=== PATIENT | female | born 1955 | race Two or more races ===

== ENCOUNTER 2019-08-04 06:53 | Inpatient (IN) | payer BC, OTHER ==
[~2019-08-04] VITALS: Ht 167.6 cm; Wt 98.9 kg
[2019-08-04] MEDS ORDERED: SODIUM CHLORIDE 0.9% 1,000 ML IV ONE ×2 (06:57)
[2019-08-04] MEDS ORDERED: LABETALOL HCL 5 MG/ML 4ML SYRINGE IV ONE (07:00)
[2019-08-04] MEDS ORDERED: InsuLIN REG 1unit/0.01ml Soln (100units/ml) IV ONE (07:15)
[2019-08-04 08:46] LABS: Eosinophils # (auto) 0 10 ^3/uL (0-0.8); Hemoglobin 16.5 g/dL (12.2-16.2); Nucleated Red Blood Cells % 0.1 %
[2019-08-04 08:48] LABS: Basophils # (auto) 0.2 10 ^3/uL (0-0.2); Basophils % (auto) 0.8 % (0.0-2.0); Eosinophils % (auto) 0.1 % (0.0-7.0); Hematocrit 49.9 % (36.0-46.0); Lymphocytes % (auto) 9.7 % (10.0-50.0); Mean Corpuscular Hemoglobin 26.2 pg (28.0-32.0); Mean Corpuscular Hgb Conc. 33.1 g/dL (32.0-36.0); Mean Corpuscular Volume 79.4 fL (80.0-100.0); Monocytes # (auto) 1.1 10 ^3/uL (0-1.3); Monocytes % (auto) 5.2 % (0.0-12.0); Neutrophils % (auto) 84.2 % (37.0-80.0); Platelet Count (auto) 428 10^3/uL (140-450); Red Blood Cells 6.29 10^6/uL (4.0-5.20); White Blood Cell 20.2 10^3/uL (4.4-10.8)
[2019-08-04 09:01] LABS: Albumin 3.4 g/dL (3.4-5.0); Anion Gap 12 (5-15); Blood Urea Nitrogen 13 mg/dL (7-18); Calcium 9.1 mg/dL (8.5-10.1); Carbon Dioxide 25 mmol/L (21-32); Chloride 93 mmol/L (98-107); Glucose 283 mg/dL (74-106); Potassium 3.2 mmol/L (3.5-5.1); Sodium 130 mmol/L (136-145)
[2019-08-04 09:04] LABS: BUN/Creatinine Ratio 14.4; GFR African American 81 mL/min; GFR Non-African American 67 mL/min
[2019-08-04 09:08] LABS: Alanine Aminotransferase 34 U/L (13-56); Alkaline Phosphatase 88 U/L (45-117); Aspartate Aminotransferase 36 U/L (15-37); Bilirubin, Total 1.1 mg/dL (0.2-1.0); Total Protein 7.9 g/dL (6.4-8.2)
[2019-08-04] MEDS ORDERED: cefTRIAXone 1GM/50ML D5W 50 ML IV ONE (09:30)
[2019-08-04 09:52] LABS: Urine Bacteria NONE SEEN /hpf (None Seen); Urine Blood Negative /uL (Negative); Urine Hyaline Cast FEW /lpf (0 - 2); Urine Specific Gravity 1.017 (1.001-1.035); Urine WBC 1 /hpf (0 - 5)
[2019-08-04] MEDS ORDERED: MORPHINE SULF INJ 2 MG/ML SYRINGE 1ML IV PRN ×3 (10:15→13:30)
[2019-08-04] MEDS ORDERED: NITROGLYCERIN 0.4 MG SL TAB SL PRN (10:15)
[2019-08-04] MEDS ORDERED: SODIUM CHLORIDE 0.9% 2,300 ML IV ONE (10:15)
[2019-08-04] MEDS ORDERED: DEXTROSE (50%) 50ML SYRG IV PRN (10:15)
[2019-08-04] MEDS ORDERED: levoFLOXacin 500MG 100 ML IV ONE (10:15)
[2019-08-04] MEDS ORDERED: ENOXAPARIN SOD 40 MG/0.4 ML SYRINGE SC ONE (10:15)
[2019-08-04] MEDS ORDERED: ACETAMINOPHEN 500 MG TAB PO PRN (10:15)
[2019-08-04] MEDS: FAMOTIDINE (10MG/ML) 2ML VL IV SCH ×2 (10:33→22:34)
[2019-08-04] MEDS ORDERED: IOHEXOL 300 MG/ML 100ML BOTTLE IJ ONE (10:57)
[2019-08-04] MEDS ORDERED: LORazepam 2MG/ML-1ML VIAL IV ONE (11:15)
[2019-08-04] MEDS: MORPHINE SULF INJ 2 MG/ML SYRINGE 1ML IV PRN (12:05)
[2019-08-04] MEDS: PROMETHAZINE HCL 25 MG/ML 1ML IV PRN (12:05)
[2019-08-04 12:12] VITALS: BP 184/104
[2019-08-04 12:34] LABS: CRP High Sensitivity 1.65 mg/dL (< 0.3)
[2019-08-04] MEDS ORDERED: ASPirin 81 mg TAB PO ONE (13:00)
[2019-08-04] MEDS: ACCU-CHEK COMFORT CURVE STRIP VI SCH ×3 (13:01→23:25)
[2019-08-04] MEDS: InsuLIN REG 1unit/0.01ml Soln (100units/ml) SC SCH ×3 (13:12→23:25)
--- NOTE | 2019-08-04 15:30 | NUR ---
Spoke with Spoke with on the phone regarding update on patient. She is currently drowsy, sleeping, easily aroused but doesn't open her eyes for long or say much. Explained to the that she was restless and in pain so she was given pain medication prior to arrival on central unit and she was sleepy. He said he hadn't talked to anyone all morning and patient wasn't answering the phone. Updated as much as possible at this time. He said he would call back later today for an update.
[2019-08-04] MEDS: SOD CHL 0.9%/ KCL 40MEQ 1,000 ML IV SCH ×2 (15:46→17:42)
[2019-08-04] MEDS: metroNIDAZOLE 500MG/100ML 100 ML IV SCH ×2 (15:46→22:34)
--- NOTE | 2019-08-04 17:00 | NUR ---
Patient transfer from COVID unit Patient came to the room from the [facility] in hospital bed. COVID negative. Patient is sleeping soundly but wakes easily to sound/touch. Bed alarm is on. Bed is in lowest position with brakes locked.
[2019-08-04 17:22] VITALS: BP 158/99
--- NOTE | 2019-08-04 19:15 | NUR ---
opening note pt is sleeping. respirations even on 2Lnc. no s/s of pain or discomfort at this time. winslow catheter in place, below bladder without kinks and draining. bed in low locked position, call light within reach.
[2019-08-04 21:45] VITALS: BP 153/94
[2019-08-04 22:00] VITALS: BP 173/99
[2019-08-04] MEDS: ATORVASTATIN 20 MG TAB PO SCH (22:34)
[2019-08-05] MEDS: SOD CHL 0.9%/ KCL 40MEQ 1,000 ML IV SCH ×3 (02:48→19:35)
[2019-08-05 05:00] VITALS: BP 161/93
[2019-08-05] MEDS: metroNIDAZOLE 500MG/100ML 100 ML IV SCH ×3 (05:22→22:02)
[2019-08-05] MEDS: ACCU-CHEK COMFORT CURVE STRIP VI SCH ×3 (05:22→18:04)
[2019-08-05] MEDS: InsuLIN REG 1unit/0.01ml Soln (100units/ml) SC SCH ×3 (05:25→18:05)
[2019-08-05 06:04] LABS: Basophils # (auto) 0.1 10 ^3/uL (0-0.2); Basophils % (auto) 0.8 % (0.0-2.0); Eosinophils # (auto) 0 10 ^3/uL (0-0.8); Eosinophils % (auto) 0.2 % (0.0-7.0); Hematocrit 44.8 % (36.0-46.0); Hemoglobin 15.1 g/dL (12.2-16.2); Lymphocytes # (auto) 2.5 10 ^3/uL (0.4-5.4); Lymphocytes % (auto) 15.9 % (10.0-50.0); Mean Corpuscular Hemoglobin 26.7 pg (28.0-32.0); Mean Corpuscular Hgb Conc. 33.7 g/dL (32.0-36.0); Mean Corpuscular Volume 79.2 fL (80.0-100.0); Monocytes # (auto) 1.2 10 ^3/uL (0-1.3); Monocytes % (auto) 7.7 % (0.0-12.0); Neutrophils # (auto) 11.9 10 ^3/uL (1.6-8.6); Neutrophils % (auto) 75.4 % (37.0-80.0); Nucleated Red Blood Cells % 0.2 %; Platelet Count (auto) 368 10^3/uL (140-450); Red Blood Cells 5.66 10^6/uL (4.0-5.20); Red Cell Distribution Width 14.5 % (11.8-14.3); White Blood Cell 15.8 10^3/uL (4.4-10.8)
[2019-08-05 06:12] LABS: Albumin 2.9 g/dL (3.4-5.0); Calcium 8.3 mg/dL (8.5-10.1); Potassium 3.5 mmol/L (3.5-5.1)
[2019-08-05 06:25] VITALS: BP 153/85
[2019-08-05 06:25] LABS: Bilirubin, Total 1.2 mg/dL (0.2-1.0)
--- NOTE | 2019-08-05 07:27 | NUR ---
closing note pt is resting in semi fowlers position with HOB at 30 degrees. respirations even nonlabored on 2Lnc. no s/s of pain or discomfort at this time. bed in low locked position, call light within reach.
--- NOTE | 2019-08-05 07:35 | NUR ---
Opening shift note assumed care of patient form NOR MELISSA Gibson. Patient is Aox4 and drowsy patient is able to verbalize personal information, month, year, location and situation. Bed is in lowest locked position, side rails up x2, and call light with in reach. Updated patient on plan of care and patient verbalized understanding. I will continue to monitor Q1hr and PRN.
[2019-08-05 09:00] VITALS: BP 159/93
--- NOTE | 2019-08-05 09:00 | NUR ---
Physician rounding Dr. Cardona at bedside. Updated MD on patient status. No new orders received.
[2019-08-05] MEDS: ENOXAPARIN SOD 40 MG/0.4 ML SYRINGE SC SCH (12:22)
[2019-08-05] MEDS: FAMOTIDINE (10MG/ML) 2ML VL IV SCH ×2 (12:22→22:02)
[2019-08-05] MEDS: levoFLOXacin 500MG 100 ML IV SCH (12:22)
[2019-08-05] MEDS: ASPirin 81 mg TAB PO SCH (12:22)
[2019-08-05] MEDS: LABETALOL HCL 5 MG/ML ML 20ML VIAL IV PRN (12:57)
[2019-08-05 13:00] VITALS: BP 177/91
[2019-08-05] MEDS: MORPHINE SULF INJ 2 MG/ML SYRINGE 1ML IV PRN ×2 (15:03→22:31)
[2019-08-05 17:00] VITALS: BP 142/76
[2019-08-05] MEDS ORDERED: LORazepam 2MG/ML-1ML VIAL IV PRN (19:30)
--- NOTE | 2019-08-05 19:40 | NUR ---
End of shift note endorsed care to NOC MELISSA Hartman. No s/s of distress noted.
[2019-08-05 22:00] VITALS: BP 156/81
[2019-08-05] MEDS: ATORVASTATIN 20 MG TAB PO SCH (22:02)
[2019-08-06] MEDS: InsuLIN REG 1unit/0.01ml Soln (100units/ml) SC SCH ×5 (01:00→23:37)
[2019-08-06] MEDS: ACCU-CHEK COMFORT CURVE STRIP VI SCH ×5 (01:00→23:38)
--- NOTE | 2019-08-06 03:47 | NUR ---
Pt called out to nurses' station at approx 0320 that she was experiencing difficulty breathing. This RN responded to pt's room. Lips dusky, O2 sat 89. Placed on O2 per n/c at 2lpm. Pt had slid down in bed causing her to be bent mid torso. RN and [employer] repositioned pt in bed bringing her up higher in bed for better lung capacity. Pt anxious. Pursed lip expirations. Respirations decreased on exhalations, clear with inspirations. RN increased O2 to 4lpm as O2 sat topping at 92. Pt slowly beginning to breathe easier, O2 increased to 94%. Lips pinker. Respirations easier. Decreased to 2lpm with slow decrease to 92; therefore O2 returned to 3lpm. Pt cont to stifle coughing states she has had difficulty with this for 'weeks', needing to cough but experiencing pain in her back if she does. So, pt tries not to cough. Respirations currently clear on insp and exp. Pt able to inhale and exhale without pursed lips. O2 cont at 93%. Thanked pt for alerting nurse quickly and urged her to do so again if resp become more diff. Pt states she will.
[2019-08-06 05:00] VITALS: BP 153/85
[2019-08-06] MEDS: metroNIDAZOLE 500MG/100ML 100 ML IV SCH ×3 (06:00→21:22)
[2019-08-06 09:13] VITALS: BP 137/81
--- NOTE | 2019-08-06 09:42 | NUR ---
Opening shift note Assumed care of patient from NOC MELISSA Hartman. Patient is AOx4 no s/s of distress noted. Bed is in lowest locked position, side rails up x2, and call light is within reach. Updated patient on plan of care and patient verbalized understanding. Will continue to monitor q1hr and PRN.
[2019-08-06] MEDS: levoFLOXacin 500MG 100 ML IV SCH (10:00)
--- NOTE | 2019-08-06 10:15 | NUR ---
Physician rounding Dr. Cardona at bedside, updated him on patient status. New orders received. Will follow through and will continue care.
--- NOTE | 2019-08-06 10:15 | NUR ---
Physician rounding Dr. Cardona at bedside. Updated MD on patient status, new orders received, will follow through and will continue care.
--- NOTE | 2019-08-06 11:05 | NUR ---
Est energy needs [id number] kcal (20-25 kcal/kg BW 76.6kg) Est protein needs 61-77g (0.8-1g/kg BW 76.6kg) Will reassess prn. Addendum: 08/06/19 at [address] Amended: Links added.
[2019-08-06 11:55] LABS: Basophils # (auto) 0.2 10 ^3/uL (0-0.2); Basophils % (auto) 1.1 % (0.0-2.0); Eosinophils # (auto) 0.1 10 ^3/uL (0-0.8); Red Cell Distribution Width 14.3 % (11.8-14.3)
[2019-08-06 11:57] LABS: Eosinophils % (auto) 0.6 % (0.0-7.0); Hematocrit 48.7 % (36.0-46.0); Hemoglobin 15.7 g/dL (12.2-16.2); Lymphocytes # (auto) 2.1 10 ^3/uL (0.4-5.4); Lymphocytes % (auto) 13.3 % (10.0-50.0); Mean Corpuscular Hemoglobin 26.1 pg (28.0-32.0); Mean Corpuscular Hgb Conc. 32.2 g/dL (32.0-36.0); Mean Corpuscular Volume 80.9 fL (80.0-100.0); Monocytes # (auto) 0.8 10 ^3/uL (0-1.3); Monocytes % (auto) 5.4 % (0.0-12.0); Neutrophils # (auto) 12.4 10 ^3/uL (1.6-8.6); Neutrophils % (auto) 79.6 % (37.0-80.0); Platelet Count (auto) 391 10^3/uL (140-450); Red Blood Cells 6.02 10^6/uL (4.0-5.20); White Blood Cell 15.6 10^3/uL (4.4-10.8)
[2019-08-06] MEDS: ASPirin 81 mg TAB PO SCH (12:05)
[2019-08-06] MEDS: FAMOTIDINE (10MG/ML) 2ML VL IV SCH ×2 (12:06→21:19)
[2019-08-06] MEDS: ENOXAPARIN SOD 40 MG/0.4 ML SYRINGE SC SCH (12:06)
[2019-08-06] MEDS: SOD CHL 0.9%/ KCL 40MEQ 1,000 ML IV SCH ×2 (12:06→21:22)
[2019-08-06] MEDS: MORPHINE SULF INJ 2 MG/ML SYRINGE 1ML IV PRN ×3 (12:07→21:18)
[2019-08-06 13:02] VITALS: BP 169/99
[2019-08-06] MEDS: LABETALOL HCL 5 MG/ML ML 20ML VIAL IV PRN (15:11)
--- NOTE | 2019-08-06 15:25 | NUR ---
IV removal IV to the right forearm noted to be leaking and not patent. IV DC'd with clean sterile technique, catheter fully intact. Pressure dressing applied to site. Patient tolerated well.
--- NOTE | 2019-08-06 15:35 | NUR ---
IV insertion IV access obtained, via clean sterile technique by inserting 20 gauge catheter at right wrist after 3 attempts. IV secured properly. No trauma to site. Patient tolerated well.
--- NOTE | 2019-08-06 15:55 | NUR ---
Winslow catheter dc'd Order to discontinue winslow catheter. Winslow dc'd with clean technique following deflation of balloon. Patient tolerated well with no complaints of pain. Continue care.
[2019-08-06 17:01] VITALS: BP 146/82
--- NOTE | 2019-08-06 19:15 | NUR ---
End of shift note Endorsed care to NOC MELISSA Jones, no s/s of distress noted.
--- NOTE | 2019-08-06 19:35 | NUR ---
Opening Shift Note Assumed care of patient, awake and alert. No S/S of distress/SOB or pain. Bed in lowest locked position, safety precautions in place and call light within reach. Instructed on POC and to call for assist PRN, will continue to monitor for changes Q1hr and PRN. Signed: 08/07/19 at 004 by CORIN GUTIERREZ SN <Co-Signature Required> Co-Signed: 08/07/19 at 42 by Karen Bundy RN RN
[2019-08-06] MEDS: ATORVASTATIN 20 MG TAB PO SCH (21:19)
[2019-08-06] MEDS: PROMETHAZINE HCL 25 MG/ML 1ML IV PRN (21:19)
[2019-08-06] MEDS: SUCRALFATE 1 GM/10 ML ORAL SUSP PO SCH (21:21)
--- NOTE | 2019-08-06 22:30 | NUR ---
HOSPITALIST Paged and received call from hospitalist on-call, Dr. Hobson. New orders received, read back and verified. Will input and carry out
[2019-08-06] MEDS ORDERED: ALBUTEROL SULF 2.5 MG/0.5ML(0.5%) NEB SOLN NEB PRN (22:45)
[2019-08-06 23:59] VITALS: BP_SYST 114; BP_SYST 157; BP_DIAS 71; BP_DIAS 79
[2019-08-07 02:11] VITALS: BP 157/79
[2019-08-07] MEDS: MORPHINE SULF INJ 2 MG/ML SYRINGE 1ML IV PRN ×2 (03:25→13:53)
[2019-08-07] MEDS: PROMETHAZINE HCL 25 MG/ML 1ML IV PRN (03:25)
[2019-08-07] MEDS: SOD CHL 0.9%/ KCL 40MEQ 1,000 ML IV SCH ×3 (05:03→21:26)
[2019-08-07] MEDS: LABETALOL HCL 5 MG/ML ML 20ML VIAL IV PRN (05:17)
[2019-08-07] MEDS: metroNIDAZOLE 500MG/100ML 100 ML IV SCH ×3 (05:17→21:26)
[2019-08-07] MEDS: InsuLIN REG 1unit/0.01ml Soln (100units/ml) SC SCH ×4 (05:18→23:53)
[2019-08-07] MEDS: SUCRALFATE 1 GM/10 ML ORAL SUSP PO SCH ×4 (05:18→21:25)
[2019-08-07] MEDS: ACCU-CHEK COMFORT CURVE STRIP VI SCH ×4 (05:19→23:54)
[2019-08-07 06:01] VITALS: BP 187/94
[2019-08-07 06:48] LABS: Potassium 3.7 mmol/L (3.5-5.1)
[2019-08-07 07:17] LABS: Calcium 8.6 mg/dL (8.5-10.1); Total Protein 7.3 g/dL (6.4-8.2)
[2019-08-07 08:00] VITALS: BP 166/85
--- NOTE | 2019-08-07 08:20 | NUR ---
Respiratory note: PRN MED NEB TX NOT INDICATED AT THIS TIME. HR 77, RR 16, SPO2 92%, BS CLEAR. NO SIGNS OR SYMPTOMS OF RESPIRATORY DISTRESS NOTED.
[2019-08-07] MEDS ORDERED: LORazepam 2MG/ML-1ML VIAL IV ONE (09:00)
[2019-08-07 09:25] LABS: Folate (Folic Acid) > 24.00 ng/mL (5.38-24)
[2019-08-07] MEDS: FAMOTIDINE (10MG/ML) 2ML VL IV SCH ×2 (09:53→21:25)
[2019-08-07] MEDS: ENOXAPARIN SOD 40 MG/0.4 ML SYRINGE SC SCH (09:53)
[2019-08-07] MEDS: PANTOPRAZOLE 40 MG TAB PO SCH (09:53)
[2019-08-07] MEDS: ASPirin 81 mg TAB PO SCH (09:54)
[2019-08-07] MEDS: levoFLOXacin 500MG 100 ML IV SCH (09:54)
--- NOTE | 2019-08-07 10:15 | NUR ---
Attempted PT treatment. Pt is very lethargic from Ativan given earlier. Will attempt again later.
[2019-08-07 11:35] LABS: Eosinophils # (auto) 0.2 10 ^3/uL (0-0.8); Hemoglobin 15.4 g/dL (12.2-16.2); White Blood Cell 15.7 10^3/uL (4.4-10.8)
[2019-08-07 11:36] LABS: Basophils # (auto) 0.2 10 ^3/uL (0-0.2); Hematocrit 47.6 % (36.0-46.0); Lymphocytes % (auto) 12.6 % (10.0-50.0); Mean Corpuscular Hemoglobin 26.3 pg (28.0-32.0); Mean Corpuscular Hgb Conc. 32.3 g/dL (32.0-36.0); Mean Corpuscular Volume 81.4 fL (80.0-100.0); Monocytes # (auto) 0.7 10 ^3/uL (0-1.3); Monocytes % (auto) 4.7 % (0.0-12.0); Neutrophils # (auto) 12.7 10 ^3/uL (1.6-8.6); Neutrophils % (auto) 80.7 % (37.0-80.0); Platelet Count (auto) 404 10^3/uL (140-450); Red Blood Cells 5.85 10^6/uL (4.0-5.20); Red Cell Distribution Width 14.4 % (11.8-14.3)
[2019-08-07] MEDS ORDERED: LISI40TA11 PO (11:54)
[2019-08-07] MEDS ORDERED: METF-929 PO (11:54)
[2019-08-07] MEDS ORDERED: GLIP10TA9 PO (11:54)
[2019-08-07 12:00] VITALS: BP 164/98
[2019-08-07] MEDS: LISINOPRIL 20 MG TAB PO SCH (12:13)
[2019-08-07 17:00] VITALS: BP 145/84
--- NOTE | 2019-08-07 19:35 | NUR ---
Opening Shift Note Assumed care of patient, awake and alert. No S/S of distress/SOB or pain. Bed in lowest locked position, safety precautions in place, and call light within reach. Instructed on POC and to call for assist PRN, will continue to monitor for changes Q1hr and PRN. Signed: 08/07/19 at 2338 by CORIN GUTIERREZ SN <Co-Signature Required> Co-Signed: 08/07/19 at 2338 by Karen Bundy RN RN
[2019-08-07] MEDS ORDERED: CYANOCOBALAMIN (B-12) 1000 MCG/1 ML VIAL IM ONE (20:15)
[2019-08-07] MEDS: ATORVASTATIN 20 MG TAB PO SCH (21:25)
[2019-08-07 21:30] VITALS: BP 154/87
[2019-08-08 04:52] VITALS: BP 153/85
[2019-08-08] MEDS: metroNIDAZOLE 500MG/100ML 100 ML IV SCH (05:09)
[2019-08-08] MEDS: SUCRALFATE 1 GM/10 ML ORAL SUSP PO SCH ×2 (05:10→11:18)
[2019-08-08] MEDS: SOD CHL 0.9%/ KCL 40MEQ 1,000 ML IV SCH (05:10)
[2019-08-08] MEDS: ACCU-CHEK COMFORT CURVE STRIP VI SCH ×2 (05:10→12:00)
[2019-08-08] MEDS: InsuLIN REG 1unit/0.01ml Soln (100units/ml) SC SCH ×2 (05:21→12:00)
[2019-08-08 05:46] LABS: Basophils # (auto) 0.1 10 ^3/uL (0-0.2); Eosinophils # (auto) 0.2 10 ^3/uL (0-0.8); Hemoglobin 14.6 g/dL (12.2-16.2); Lymphocytes # (auto) 1.7 10 ^3/uL (0.4-5.4); Monocytes # (auto) 0.6 10 ^3/uL (0-1.3)
[2019-08-08 05:48] LABS: Basophils % (auto) 0.9 % (0.0-2.0); Eosinophils % (auto) 2.1 % (0.0-7.0); Hematocrit 44.6 % (36.0-46.0); Lymphocytes % (auto) 14.7 % (10.0-50.0); Mean Corpuscular Hemoglobin 26.2 pg (28.0-32.0); Mean Corpuscular Hgb Conc. 32.8 g/dL (32.0-36.0); Mean Corpuscular Volume 79.8 fL (80.0-100.0); Monocytes % (auto) 5.1 % (0.0-12.0); Neutrophils # (auto) 8.8 10 ^3/uL (1.6-8.6); Neutrophils % (auto) 77.2 % (37.0-80.0); Nucleated Red Blood Cells % 0.1 %; Platelet Count (auto) 389 10^3/uL (140-450); Red Blood Cells 5.59 10^6/uL (4.0-5.20); Red Cell Distribution Width 14.3 % (11.8-14.3); White Blood Cell 11.4 10^3/uL (4.4-10.8)
[2019-08-08 06:14] LABS: Potassium 3.4 mmol/L (3.5-5.1)
[2019-08-08 06:26] LABS: Albumin 2.9 g/dL (3.4-5.0); Bilirubin, Total 0.8 mg/dL (0.2-1.0); Calcium 8.6 mg/dL (8.5-10.1); Total Protein 6.3 g/dL (6.4-8.2)
[2019-08-08 08:44] VITALS: BP 160/88
--- NOTE | 2019-08-08 09:17 | NUR ---
RECEIVED PATIENT ALERT AND ORIENTED X4, NOT IN DISTRESS, WHEEZING LS IN BILATERAL UPPER AND CLEAR SOUNDS IN LOWER LOBES NOTED, RR=18 SAT= 96% WITH O2 2L NC, DEEP BREATHING AND COUGHING ENCOURAGED, VERBALIZED UNDERSTANDING, DENIED SOB AND CHEST PAIN AT THIS MOMENT, SR R=72 W/BBB ON TELE MONITOR, ABDOMEN SOFT WITH ACTIVE BS, LAST BM=08/07/19 REPORTED, SKIN INTACT WARM TOUCH, RADIAL AND PEDAL PULSES PALPABLE, DENIED PAIN, RESTING ON BED, HEAD OF BED ELEVATED, BED ON LOW POSITION, RAILS UP X2, CALL LIGHT ON REACH, PENDING SS FOR LIVING CONDITION ASSESSMENT, PENDING PT, WILL CONTINUE MONITORING.
--- NOTE | 2019-08-08 09:42 | NUR ---
OUT OF BED TO THE BR WITH STANDBY ASSISTANCE, AND AMBULATED AROUND THE UNIT X2 WITH PT TOLERATED WELL, NOT IN DISTRESS, DENIED PAIN, SITTING ON BED AND DANGLING AT THIS MOMENT, POTASSIUM L=3.4 THIS MORNING, DR. TONYA EDMONDS WAS NOTIFIED AND AWARE, WILL CONTINUE MONITORING.
[2019-08-08] MEDS ORDERED: CYANOCOBALAMIN 500 MCG TAB PO SCH (10:00)
[2019-08-08] MEDS ORDERED: POTASSIUM CHL 20 Meq TABLET PO ONE ×3 (11:12→11:23)
[2019-08-08] MEDS: levoFLOXacin 500MG 100 ML IV SCH (11:14)
[2019-08-08] MEDS: PANTOPRAZOLE 40 MG TAB PO SCH (11:14)
[2019-08-08] MEDS: ASPirin 81 mg TAB PO SCH (11:14)
[2019-08-08] MEDS: LISINOPRIL 20 MG TAB PO SCH (11:16)
[2019-08-08] MEDS: ENOXAPARIN SOD 40 MG/0.4 ML SYRINGE SC SCH (11:17)
[2019-08-08] MEDS: FAMOTIDINE (10MG/ML) 2ML VL IV SCH (11:17)
[2019-08-08 13:00] VITALS: BP 156/69
--- NOTE | 2019-08-08 13:30 | NUR ---
D/C INSTRUCTIONS AND FOLLOW UP WITH PCP ANOINTMENT INSTRUCTION PROVIDED, PRESCRIPTIONS AND EDUCATION PROVIDED, VERBALIZED UNDERSTANDING, TOLERATED DIABETIC LUNCH TRAY 100%, LAST BM AT 12:30 REPORTED, DENIED ABDOMINAL PAIN AND DISCOMFORT, D/C TELE AND IV SITE TOLERATED WELL, VS T=97.8 RR=18 SAT=94% P=78 JP=758/72, NOT IN DISTRESS DENIED PAIN, WAITING FOR A RIDE TO GO HOME, WILL CONTINUE MONITORING.
--- NOTE | 2019-08-08 16:00 | NUR ---
D/C ON WC ACCOMPANIED BY , TOOK ALL BELONGINGS AND LEFT NOTHING BEHIND.
== END 2019-08-08 15:30 | disposition home or self-care (01) | DRG 871 ==
LOC: EDBD 06:53 → ER 06:53 → TELE 06:54 → TELE-EAST 11:39 → TELE-CENTR 16:56
PROVIDERS: ADMIT Internal Medicine; ATTEND Family Medicine
DX: A41.9 Sepsis, unspecified organism (principal); G93.41 Metabolic encephalopathy; R65.21 Severe sepsis with septic shock; E11.10 Type 2 diabetes mellitus with ketoacidosis without coma; E87.1 Hypo-osmolality and hyponatremia; R06.02 Shortness of breath; E11.65 Type 2 diabetes mellitus with hyperglycemia; E86.0 Dehydration; J45.909 Unspecified asthma, uncomplicated; G56.03 Carpal tunnel syndrome, bilateral upper limbs; I10 Essential (primary) hypertension; E78.00 Pure hypercholesterolemia, unspecified; A08.4 Viral intestinal infection, unspecified; E53.8 Deficiency of other specified B group vitamins; F17.200 Nicotine dependence, unspecified, uncomplicated; N20.0 Calculus of kidney; K21.9 Gastro-esophageal reflux disease without esophagitis; M85.80 Other specified disorders of bone density and structure, unspecified site; Z79.82 Long term (current) use of aspirin; Z79.899 Other long term (current) drug therapy; Z90.710 Acquired absence of both cervix and uterus; Z87.442 Personal history of urinary calculi; Z83.3 Family history of diabetes mellitus; Z82.49 Family history of ischemic heart disease and other diseases of the circulatory system; K76.0 Fatty (change of) liver, not elsewhere classified; Z20.828 Contact with and (suspected) exposure to other viral communicable diseases
CPT/HCPCS: 36415; 36600; 70450; 70551; 71045; 71101; 71250; 74176; 74177; 76705; 80053; 81001; 82010; 82140; 82150; 82550; 82607; 82746; 82805; 82962; 83036; 83690; 84207; 84425; 84484; 85025; 85652; 86141; 87040; 87086; 93005; 93306; 93886; 95819; 97116; 97163; 97530; 99291; G0378; J0696; J1815; J1956; J3490